=== PATIENT | female | born 1965 | race Two or more races ===

== ENCOUNTER 2018-08-17 17:35 | Emergency (ER) | payer OTHER ==
[~2018-08-17] VITALS: Ht 154.9 cm; Wt 60.6 kg
[2018-08-17] MEDS ORDERED: KETOROLAC 30 MG/1 ML ONE (18:23)
[2018-08-17] MEDS ORDERED: METHOCARBAMOL 750 MG TABLET ONE (18:23)
[2018-08-17] MEDS ORDERED: HYDROcodone/APAP 5/325 TABLET ONE (18:24)
[2018-08-17] MEDS ORDERED: HYDROcodone/APAP 5/325 TABLET PO ONE (18:30)
[2018-08-17] MEDS ORDERED: METHOCARBAMOL 750 MG TABLET PO ONE (18:30)
[2018-08-17] MEDS ORDERED: KETOROLAC 30 MG/1 ML IM ONE (18:30)
[2018-08-17] MEDS ORDERED: LISI2.5T PO (18:54)
[2018-08-17] MEDS ORDERED: ALOG1TAB10 PO (18:55)
[2018-08-17] MEDS ORDERED: GLIP10TA13 PO (18:56)
[2018-08-17] MEDS ORDERED: IBUP-1623 PO (18:56)
[2018-08-17] MEDS ORDERED: ALBU0.63 NEB (18:57)
[2018-08-17] MEDS ORDERED: OMEP10CA4 PO (18:57)
[2018-08-17 19:42] VITALS: BP 156/70
== END 2018-08-17 19:43 | disposition home or self-care (01) ==
LOC: ED 18:24
DX: S29.019A Strain of muscle and tendon of unspecified wall of thorax, initial encounter (principal); S39.012A Strain of muscle, fascia and tendon of lower back, initial encounter; I10 Essential (primary) hypertension; E11.9 Type 2 diabetes mellitus without complications; V49.59XA Passenger injured in collision with other motor vehicles in traffic accident, initial encounter; Y93.89 Activity, other specified; Y92.89 Other specified places as the place of occurrence of the external cause; Y99.8 Other external cause status
CPT/HCPCS: 72072; 96372; 99283; J1885